=== PATIENT | female | born 1985 | race Caucasian/White ===

== ENCOUNTER → 2018-06-25 | Outpatient (CLI) | payer OTHER | LOC: FIMAGING 11:09 | PROVIDERS: ATTEND Obstetrics & Gynecology | DX: O92.29 Other disorders of breast associated with pregnancy and the puerperium (principal); Z3A.35 35 weeks gestation of pregnancy ==

== ENCOUNTER → 2018-06-30 | Outpatient (CLI) | payer OTHER ==
[~2018-06-30] MED LIST: BUPIVACAINE 0.25% 30 ML SDV ONE; LIDOCAINE 1% 300 MG/30 ML SDV ONE
== END ==
LOC: FIMAGING 07:23
PROVIDERS: ATTEND Obstetrics & Gynecology
PROC: 0HBU3ZX Excision of Left Breast, Percutaneous Approach, Diagnostic (ICD-10-PCS; principal; 2018-06-30)
DX: O92.29 Other disorders of breast associated with pregnancy and the puerperium (principal)

== ENCOUNTER 2018-08-01 09:20 | Inpatient (IN) | payer OTHER ==
[2018-08-01] MEDS ORDERED: IBUPROFEN 600 MG TAB PO PRN (09:58)
[2018-08-01] MEDS ORDERED: OXYTOCIN/RINGERS LACTATE 1,000 ML IV PRN (09:58)
[2018-08-01] MEDS ORDERED: EPSOM SALT 454 GM TP PRN (09:58)
[2018-08-01] MEDS ORDERED: MISOPROSTOL 200 MCG TAB PR PRN (09:58)
[2018-08-01] MEDS ORDERED: LIDOCAINE 1% 300 MG/30 ML SDV SC PRN (09:58)
[2018-08-01] MEDS ORDERED: OLIVE OIL 118 ML BTL MISC PRN (09:58)
[2018-08-01] MEDS ORDERED: AMMONIA AROMATIC 1 EACH AMP IH ONE (10:31)
[2018-08-01] MEDS ORDERED: OXYTOCIN 10 UNIT/ML VIAL ONE (10:31)
[2018-08-01] MEDS ORDERED: TERBUTALINE SULFATE 1 MG/ML VIAL ONE (10:32)
[2018-08-01] MEDS ORDERED: LR 500 ML IV PRN (11:35)
[2018-08-01 11:42] LABS: PLATELET COUNT 283 10^3/uL (150-400)
[2018-08-01] MEDS ORDERED: OXYTOCIN/RINGERS LACTATE 500 ML IV SCH (12:00)
[2018-08-01] MEDS: MISOPROSTOL 25 MCG CAP PO SCH ×2 (12:12→16:27)
--- NOTE | 2018-08-01 12:26 | GHP ---
[f rep st] HISTORY AND PHYSICAL DATE OF ADMISSION: 08/01/2018 ADMITTING DIAGNOSES: 1. Intrauterine at 41 weeks. 2. Premature rupture of membranes. HISTORY OF PRESENT ILLNESS: The patient is a 33-year-old, 1, para 0, at 41 weeks with estimated due date 07/25/2018, by last menstrual period 2017, and consistent with ultrasound at 8 weeks and 4 days. The patient presents to labor and delivery with complaints of leakage of fluid since 8 p.m. last night. The patient states clear fluid with no odor, and then at 4:00 this morning, she had another gush of fluid, as well as right before coming into the hospital which was pinkish color. The patient denies any contractions at this time. States there is good movement. No vaginal bleeding or spotting noted. The patient has good care at [facility], and presented in her first trimester at 8 weeks. Patient has a history of supraventricular tachycardia and discontinued diltiazem 6 months prior to conception. She has had no episodes of SVT throughout the . The patient has a history of anxiety, and [facility], currently unmedicated. The patient has a low-lying placenta diagnosed on 20 week ultrasound, which then resolved on ultrasound at 30 weeks. She had an abnormal 1-hour Glucola at 141, and a normal 3-hour Glucola. The patient developed anemia of and was taking iron, and then discontinued it since no further anemic. The patient received Tdap during . GBS culture is negative. PAST OBSTETRICAL HISTORY: This is the patient's first . PAST GYNECOLOGICAL HISTORY: Age of menarche was 11. Cycles are regular, every 28 days, for 2-3 days. LMP 10/26/2017. The patient denies a history of abnormal Pap smears or any exposure to sexually transmitted diseases. CURRENT MEDICATIONS: Include vitamins with DHA. ALLERGIES: No known drug allergies. PAST MEDICAL HISTORY: SVT diagnosed in 2012 and anxiety. PAST SURGICAL HISTORY: Left elbow. FAMILY HISTORY: Maternal grandfather, myocardial infarction; maternal grandmother and paternal grandmother, stroke; father, ALS; maternal uncle, Parkinson's; mother with uterine cancer, age 55, BRCA negative; maternal grandmother with breast cancer diagnosed in 50s, then metastasized, at age 61. SOCIAL HISTORY: The patient is and lives with her . 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 Denies any alcohol, tobacco or illicit drug use during the . REVIEW OF SYSTEMS: Ten-point review of systems is negative. Pertinent positives as noted in HPI. LABS: First trimester H and H, 14 and 40.2, platelets 275. Blood type A positive, antibody negative. RPR nonreactive. Rubella immune. Hepatitis B surface antigen negative. HIV negative. Standard panel negative . Parvovirus and varicella immune. Urine drug screen, UA, and culture all negative. Innatal screen negative. Third trimester H and H, 12 and 34.7. One-hour Glucola 141; 3-hour Glucola 76, 149, 120, 157. GBS culture is negative. Hematocrit at 34 weeks was 38. PHYSICAL EXAMINATION: VITAL SIGNS: On admission, vital signs are stable. The patient is afebrile. GENERAL: Well-nourished, well-developed female. Alert and oriented x3. No apparent distress. SKIN: Warm, dry without rash. NEURO: Grossly intact. CARDIOVASCULAR: Regular rate and rhythm. LUNGS: Clear to auscultation bilaterally. ABDOMEN: Gravid, soft, nontender. PELVIC: On exam , patient was 1-2 cm dilated, 65% effaced, and -3 station. AmniSure was positive. EXTREMITIES: Normal to inspection without calf tenderness or edema. heart tones are Category 1 tracing with baseline 140 beats per minute. Positive accelerations. No decelerations. Moderate variability. On toco, there is uterine irritability and occasional contractions. ASSESSMENT/PLAN: The patient is a 33-year-old, 1, para 0, at 41 weeks gestation who presents with premature rupture of membranes. 1. Admit to labor and delivery for induction of labor. 2. With unfavorable cervix, will start cervical ripening with Misoprostol 25 mg buccally every 4 hours. 3. GBS culture is negative, no prophylactic antibiotics are needed. 4. The patient desires epidural for pain control. 5. The patient is afebrile upon admission; will continue to monitor at this time since ruptured greater than almost 16 hours now. /[id number]/MODL MTDD
--- NOTE | 2018-08-01 16:05 | OBPROG ---
Labor Progress Note Assessment/Plan: Assessment: 33 y/o @ 41 weeks with PROM Plan: s/p first dose of buccal miso, up ambulating, due for second dose now Bedside u/s confirms cephalic presentation FHTs - Cat I tracing, will cont to monitor Pt remains afebrile 08/01/18 16:01 Subjective/Intrapartum Course: 08/01/18 16:02 Pt back from ambulating and c/o cramping. Objective: 08/01/18 11:30 Patient ABO/Rh A POSITIVE 08/01/18 11:30 - Contraction Pattern Assessment Current Contraction Pattern: Irregular - FHR Assessment Colbert FHR (bpm): 140 FHR Pattern Variability: Moderate FHR Category: 1 - AP Antepartum Course: 08/01/18 16:03 Low-lying placenta that resolved on 30-wk u/s; no episodes of SVT during ; Abn 1-hr Glucola, but normal 3-hr Glucola; breast bx at 35 weeks was done and benign Oxytocin Orders Assessment - Pre-Induction/Augmentation Assessment Gestational Age: 41 week(s) and 0 day(s) ICD10 Worksheet Patient Problems: Problems Problem Status Onset PROM (premature rupture of membranes) Acute Post-dates Acute - ICD10 Problem Qualifiers (1) PROM (premature rupture of membranes) Qualifiers: PROM gestational age: full term (2) Post-dates
[2018-08-01] MEDS: LR 1,000 ML IV PRN (22:03)
[2018-08-02] MEDS ORDERED: FAMOTIDINE 20 MG/NACL 50 ML IV PRN (00:02)
[2018-08-02] MEDS ORDERED: ONDANSETRON 4 MG/2 ML VIAL IVP PRN (00:02)
[2018-08-02] MEDS ORDERED: PHENYLEPHRINE HCL 100 MCG/ML SYR IVP PRN (00:17)
[2018-08-02] MEDS ORDERED: NALOXONE HCL 0.4 MG/ML INJ IVP PRN (00:17)
[2018-08-02] MEDS ORDERED: BUPIVACAINE 0.25% 10 ML SDV ONE (00:22)
[2018-08-02] MEDS ORDERED: fentaNYL 100 MCG/2 ML INJ ONE (00:22)
[2018-08-02] MEDS ORDERED: fentaNYL 2MCG/ML/BUP 0.1% RTU 100 ML BAG EP ONE (00:22)
[2018-08-02] MEDS ORDERED: PHENYLEPHRINE HCL 100 MCG/ML SYR ONE (00:23)
--- NOTE | 2018-08-02 00:26 | PREANESOB ---
Obstetric Pre-Anesthesia Info - General Info Proposed Procedure: labor epidural NPO Start Time: 00:00 : 1 Para: 0 DENIA: 07/25/18 Gestational Age: 41 week(s) and 0 day(s) - Info Status: Full Term Monitors: External FHR Pattern: Reassuring - Labor Status Cervical Dilation per last OB SVE: 1 Rupture of Membranes Date: 08/01/18 Rupture of Membranes Time: 20:00 Amniotic Fluid Color: Clear PIH: No Magnesium Sulfate in Use: No Indications for Labor Analgesia: Pain Control Labor Epidural: Proposed Anesthesia Allergies/Adverse Reactions: Allergy/AdvReac Type Severity Reaction Status Date / Time No Known Allergies Allergy Unverified 09/02/15 22:54 Home Medications: Medication Instructions Recorded Vit27&Calcium/Iron/FA 1 each PO DAILY 08/01/18 [ Rx 1 Tablet (RX)] Visit Medications: Generic Name Dose Route Start Last Admin Trade Name Freq PRN Reason Stop Dose Admin Lactated Ringer's 1,000 mls @ 0 mls/hr 08/01/18 09:58 08/01/18 22:03 Lr IV 08/02/18 09:57 1,000 mls PRN PRN Administration SEE PROTOCOL CONDITIONS Protocol Per Protocol Oxytocin/Lactated Ringer's 1,000 mls @ 125 mls/hr 08/01/18 09:58 Pitocin 20 Units/Lr (Premix) IV PRN PRN Post bleeding Lactated Ringer's 500 mls @ 500 mls/hr 08/01/18 11:35 Lr IV 08/02/18 11:35 PRN PRN Maternal Hypotension Oxytocin/Lactated Ringer's 500 mls @ 0 mls/hr 08/01/18 12:00 08/01/18 22:03 Pitocin 30 Units/Lr (Premix) IV 01/28/19 11:59 500 mls CONT OBED Administration Protocol Per Protocol Famotidine/Sodium Chloride 50 mls @ 200 mls/hr 08/02/18 00:02 Pepcid 20 Mg (Premix) IV 01/29/19 00:01 Q12 PRN ACID REFLUX Ibuprofen 600 mg 08/01/18 09:58 Motrin PO ONCE PRN post , pain Lidocaine HCl 300 mg 08/01/18 09:58 Lidocaine Hcl 1% SC 01/28/19 09:57 ONCE PRN episiotomy Magnesium Sulfate 454 gm 08/01/18 09:58 Epsom Salt TP 01/28/19 09:57 Q1H PRN perineal discomfort Misoprostol 800 - 1,000 mcg 08/01/18 09:58 Cytotec NE ONCE PRN Vaginal Atony/Bleeding Misoprostol 25 mcg 08/01/18 12:00 08/01/18 16:27 Cytotec PO 01/28/19 11:59 25 mcg Q4H OBED Administration Aurora Oil 118 ml 08/01/18 09:58 Sweet Oil MISC 01/28/19 09:57 ONCE PRN perineal massage Ondansetron HCl 4 mg 08/02/18 00:02 Zofran IVP 01/29/19 00:01 Q6 PRN Nausea/Vomiting, Can't Take PO Discontinued Medications Generic Name Dose Route Start Last Admin Trade Name Freq PRN Reason Stop Dose Admin Ammonia (Aromatic Spirit) Confirm 08/01/18 10:31 Ammonia Aromatic Administered 08/01/18 10:32 Dose 1 each IH .STK-MED ONE Oxytocin Confirm 08/01/18 10:31 Pitocin Administered 08/01/18 10:32 Dose 30 unit .ROUTE .STK-MED ONE Terbutaline Sulfate Confirm 08/01/18 10:32 Brethine Administered 08/01/18 10:33 Dose 1 mg .ROUTE .STK-MED ONE - Anesthesia History Response to Local Anesthetics: Normal Anesthesia & Operative History: No Prior Problems Family Anesthesia History: Negative - Social History Substance Use/Abuse: Denies, ETOH (occassional pre gestation), Tobacco (never smoked) - Vital Signs Height/Weight (Nursing): Height 167.64 cm Weight 83.007 kg - Focused Exam Neck exam: FROM Mallampati Score: Class 3 Mouth exam: small mouth opening Pulmonary: no respiratory distress Cardiovascular: regular rate and rhythym Labs: 08/01/18 11:30 Patient ABO/Rh A POSITIVE 08/01/18 11:30 - Plan Anesthetic Plan: Labor Epidural analgesia Consent Signed and on Chart: Yes Patient/Guardian Understands and Agrees to Plan: Yes
[2018-08-02] MEDS ORDERED: fentaNYL 2MCG/ML/BUP 0.1% RTU 100 ML EP SCH (00:30)
[2018-08-02] MEDS ORDERED: LR 500 ML IV SCH (00:30)
--- NOTE | 2018-08-02 01:14 | POSTANESTH ---
Post Anesthetic Evaluation Cardiovascular Status: Normal, Stable Respiratory Status: Normal, Stable Level of Consciousness/Mental Status: Can Participate in Eval Pain Control: Adequate, Prn Tx Ordered Nausea/Vomiting Control: Adequate, Prn Tx Ordered Complications Possibly Related to Anesthesia: None Noted (Pain with contractions is 0/10, was 7/10 before DARRIUS placement. Decreased sensation to LT to T10 B, able to move B LE.)
[2018-08-02] MEDS: LR 1,000 ML IV PRN (01:45)
--- NOTE | 2018-08-02 04:15 | OBPROG ---
Labor Progress Note Assessment/Plan: Assessment: 33 y/o @ 41 weeks with PROM Plan: Continue current management s/p Cytotec buccal x 2 - last dose at 1600 3/3 Pitocin currently at 2 mu/min; some times of tachysystole noted SVE: complete/-1 FHTs - Cat I tracing, reassuring Pt remains afebrile with Temp 37.0 at 0315 Will have pt labor down Anticipate 08/02/18 04:11 Subjective/Intrapartum Course: 08/01/18 16:02 Pt back from ambulating and c/o cramping 08/02/18 04:15 Pt is s/p epidural, placed at 0045-she is comfortable with no complaints at this time. Nausea and acid reflux improved. Objective: 08/01/18 11:30 Patient ABO/Rh A POSITIVE 08/01/18 11:30 - SVE Dilation (cm): 10 Effacement (%): 100 Station: -1 Membranes: SROM (PROM) Amniotic Fluid Color: Clear Dilation Complete Date: 08/02/18 Dilation Complete Time: 03:15 - Contraction Pattern Assessment Current Contraction Pattern: Regular (q 2-4 min with coupling) - FHR Assessment Colbert FHR (bpm): 130 FHR Pattern Variability: Moderate FHR Category: 2 (intermittent mild variable decels noted) - AP Antepartum Course: 08/01/18 16:03 Low-lying placenta that resolved on 30-wk u/s; no episodes of SVT during ; Abnormal 1-hr Glucola, but normal 3-hr Glucola; breast bx at 35 weeks was done and benign Oxytocin Orders Assessment - Pre-Induction/Augmentation Assessment Gestational Age: 41 week(s) and 0 day(s) ICD10 Worksheet Patient Problems: Problems Problem Status Onset PROM (premature rupture of membranes) Acute Post-dates Acute - ICD10 Problem Qualifiers (1) PROM (premature rupture of membranes) Qualifiers: PROM onset of labor timing: onset of labor more than 24 hours following rupture PROM gestational age: full term Qualified Code(s): O42.12 - Full- term premature rupture of membranes, onset of labor more than 24 hours following rupture (2) Post-dates
[2018-08-02] MEDS: MISOPROSTOL 25 MCG CAP PO SCH ×2 (07:17→07:18)
--- NOTE | 2018-08-02 07:19 | OBPROG ---
Labor Progress Note Assessment/Plan: Assessment: 33 y/o @ 41 1/7 weeks with PROM now almost 36 hours Plan: Started pushing with pt for about 30 min Suspect OP; will have pt positioned on her side with peanut ball and then start pushing again FHTs - Cat II strip with intermittent variable decels Pt remains afebrile Anticipate 08/02/18 07:21 Subjective/Intrapartum Course: 08/01/18 16:02 Pt back from ambulating and c/o cramping 08/02/18 04:15 Pt is s/p epidural, placed at 0045-she is comfortable with no complaints at this time. Nausea and acid reflux improved. 08/02/18 07:19 Pt pushing well; she needs a lot of reinforcement. She is happy to have Dr. Montesinos come on. Objective: 08/01/18 11:30 Patient ABO/Rh A POSITIVE 08/01/18 11:30 - SVE Dilation (cm): 10 Effacement (%): 100 Station: +1 Membranes: SROM (PROM) Amniotic Fluid Color: Clear Dilation Complete Date: 08/02/18 Dilation Complete Time: 03:15 - Contraction Pattern Assessment Current Contraction Pattern: Irregular (q 3-5 min with coupling) - FHR Assessment Colbert FHR (bpm): 130 FHR Pattern Variability: Moderate FHR Category: 2 (intermittent variable decels) - AP Antepartum Course: 08/01/18 16:03 Low-lying placenta that resolved on 30-wk u/s; no episodes of SVT during ; Abnormal 1-hr Glucola, but normal 3-hr Glucola; breast bx at 35 weeks was done and benign Oxytocin Orders Assessment - Pre-Induction/Augmentation Assessment Gestational Age: 41 week(s) and 0 day(s) ICD10 Worksheet Patient Problems: Problems Problem Status Onset PROM (premature rupture of membranes) Acute Post-dates Acute - ICD10 Problem Qualifiers (1) PROM (premature rupture of membranes) Qualifiers: PROM onset of labor timing: onset of labor more than 24 hours following rupture PROM gestational age: full term Qualified Code(s): O42.12 - Full- term premature rupture of membranes, onset of labor more than 24 hours following rupture (2) Post-dates
--- NOTE | 2018-08-02 08:28 | OBPROG ---
Labor Progress Note Assessment/Plan: Assessment: Plan: Subjective/Intrapartum Course: 08/01/18 16:02 Pt back from ambulating and c/o cramping 08/02/18 04:15 Pt is s/p epidural, placed at 0045-she is comfortable with no complaints at this time. Nausea and acid reflux improved. 08/02/18 07:19 Pt pushing well; she needs a lot of reinforcement. She is happy to have Dr. Montesinos come on. 08/02/18 08:27 complete and pushing. good maternal effort. baby feels to be in LOP position. trying multiple positions. status reassuring. pitocin is at 3 mu. having some coupling. will increase pitocin as needed. 08/02/18 08:27 Objective: 08/01/18 11:30 Patient ABO/Rh A POSITIVE 08/01/18 11:30 - SVE Dilation (cm): 10 Station: +1 Membranes: SROM (PROM) Amniotic Fluid Color: Clear Dilation Complete Date: 08/02/18 Dilation Complete Time: 03:15 - Contraction Pattern Assessment Current Contraction Pattern: Irregular (q 3-5 min with coupling) - FHR Assessment Colbert FHR Category: 1 - AP Antepartum Course: 08/01/18 16:03 Low-lying placenta that resolved on 30-wk u/s; no episodes of SVT during ; Abnormal 1-hr Glucola, but normal 3-hr Glucola; breast bx at 35 weeks was done and benign Oxytocin Orders Assessment - Pre-Induction/Augmentation Assessment Gestational Age: 41 week(s) and 0 day(s) ICD10 Worksheet Patient Problems: Problems Problem Status Onset PROM (premature rupture of membranes) Acute Post-dates Acute
--- NOTE | 2018-08-02 10:47 | OBPROG ---
Labor Progress Note Assessment/Plan: Assessment: Plan: Subjective/Intrapartum Course: 08/01/18 16:02 Pt back from ambulating and c/o cramping 08/02/18 04:15 Pt is s/p epidural, placed at 0045-she is comfortable with no complaints at this time. Nausea and acid reflux improved. 08/02/18 07:19 Pt pushing well; she needs a lot of reinforcement. She is happy to have Dr. Montesinos come on. 08/02/18 08:27 complete and pushing. good maternal effort. baby feels to be in LOP position. trying multiple positions. status reassuring. pitocin is at 3 mu. having some coupling. will increase pitocin as needed. 08/02/18 08:27 08/02/18 10:44 patient pushed epidural bolus button. discussed not pushing it further so she can have increased sensation with pushing. iupc placed without difficulty. contractions are inadequate. .will continue to increase pitocin. status reassuring. will continue repositioning and will try spinning babies positioning to try to facilitate better baby positioning. Objective: 08/01/18 11:30 Patient ABO/Rh A POSITIVE 08/01/18 11:30 - SVE Membranes: SROM (PROM) Amniotic Fluid Color: Clear Dilation Complete Date: 08/02/18 Dilation Complete Time: 03:15 - Contraction Pattern Assessment Current Contraction Pattern: Irregular (q 3-5 min with coupling) - Procedures Non-surgical Procedures: IUPC - AP Antepartum Course: 08/01/18 16:03 Low-lying placenta that resolved on 30-wk u/s; no episodes of SVT during ; Abnormal 1-hr Glucola, but normal 3-hr Glucola; breast bx at 35 weeks was done and benign Oxytocin Orders Assessment - Pre-Induction/Augmentation Assessment Gestational Age: 41 week(s) and 0 day(s) ICD10 Worksheet Patient Problems: Problems Problem Status Onset PROM (premature rupture of membranes) Acute Post-dates Acute
--- NOTE | 2018-08-02 12:24 | OBPROG ---
Labor Progress Note Assessment/Plan: Assessment: Plan: Subjective/Intrapartum Course: 08/01/18 16:02 Pt back from ambulating and c/o cramping 08/02/18 04:15 Pt is s/p epidural, placed at 0045-she is comfortable with no complaints at this time. Nausea and acid reflux improved. 08/02/18 07:19 Pt pushing well; she needs a lot of reinforcement. She is happy to have Dr. Montesinos come on. 08/02/18 08:27 complete and pushing. good maternal effort. baby feels to be in LOP position. trying multiple positions. status reassuring. pitocin is at 3 mu. having some coupling. will increase pitocin as needed. 08/02/18 08:27 08/02/18 10:44 patient pushed epidural bolus button. discussed not pushing it further so she can have increased sensation with pushing. iupc placed without difficulty. contractions are inadequate. .will continue to increase pitocin. status reassuring. will continue repositioning and will try spinning babies positioning to try to facilitate better baby positioning. 08/02/18 12:22 contractions adequate. patient has been in multiple positions. overall status is reassuring. started pushing. will continue close observation. Objective: 08/01/18 11:30 Patient ABO/Rh A POSITIVE 08/01/18 11:30 - SVE Dilation (cm): 10 Effacement (%): 100 Station: +2 Membranes: SROM (PROM) Amniotic Fluid Color: Clear Dilation Complete Date: 08/02/18 Dilation Complete Time: 03:15 - Contraction Pattern Assessment Current Contraction Pattern: Irregular (q 3-5 min with coupling) - FHR Assessment Colbert FHR Category: 2 - Procedures Non-surgical Procedures: IUPC - AP Antepartum Course: 08/01/18 16:03 Low-lying placenta that resolved on 30-wk u/s; no episodes of SVT during ; Abnormal 1-hr Glucola, but normal 3-hr Glucola; breast bx at 35 weeks was done and benign Oxytocin Orders Assessment - Pre-Induction/Augmentation Assessment Gestational Age: 41 week(s) and 0 day(s) ICD10 Worksheet Patient Problems: Problems Problem Status Onset PROM (premature rupture of membranes) Acute Post-dates Acute
[2018-08-02] MEDS ORDERED: ACETAMINOPHEN 325 MG TAB ONE (14:34)
[2018-08-02] MEDS: ACETAMINOPHEN 325 MG TAB PO PRN ×2 (14:57→21:19)
--- NOTE | 2018-08-02 14:57 | OBDEL ---
Info Type: Vaginal Presentation at Delivery: Vertex L&D Analgesia/Anesthesia Type: Epidural GBS+: No Intrapartum Medications: Generic Name Dose Route Start Last Admin Trade Name Freq PRN Reason Stop Dose Admin Oxytocin/Lactated Ringer's 500 mls @ 0 mls/hr 08/01/18 12:00 08/01/18 22:03 Pitocin 30 Units/Lr (Premix) IV 01/28/19 11:59 500 mls CONT OBED Administration Protocol Per Protocol Famotidine/Sodium Chloride 50 mls @ 200 mls/hr 08/02/18 00:02 08/02/18 01:44 Pepcid 20 Mg (Premix) IV 01/29/19 00:01 50 mls Q12 PRN Administration ACID REFLUX Misoprostol 25 mcg 08/01/18 12:00 08/02/18 07:18 Cytotec PO 01/28/19 11:59 Not Given Q4H OBED Ondansetron HCl 4 mg 08/02/18 00:02 08/02/18 04:26 Zofran IVP 01/29/19 00:01 4 mg Q6 PRN Administration Nausea/Vomiting, Can't Take PO Discontinued Medications Generic Name Dose Route Start Last Admin Trade Name Freq PRN Reason Stop Dose Admin Lactated Ringer's 1,000 mls @ 0 mls/hr 08/01/18 09:58 08/02/18 01:45 Lr IV 08/02/18 09:57 1,000 mls PRN PRN Administration SEE PROTOCOL CONDITIONS Protocol Per Protocol - Hospital Course Intrapartum: 08/01/18 16:02 Pt back from ambulating and c/o cramping 08/02/18 04:15 Pt is s/p epidural, placed at 0045-she is comfortable with no complaints at this time. Nausea and acid reflux improved. 08/02/18 07:19 Pt pushing well; she needs a lot of reinforcement. She is happy to have Dr. Montesinos come on. 08/02/18 08:27 complete and pushing. good maternal effort. baby feels to be in LOP position. trying multiple positions. status reassuring. pitocin is at 3 mu. having some coupling. will increase pitocin as needed. 08/02/18 08:27 08/02/18 10:44 patient pushed epidural bolus button. discussed not pushing it further so she can have increased sensation with pushing. iupc placed without difficulty. contractions are inadequate. .will continue to increase pitocin. status reassuring. will continue repositioning and will try spinning babies positioning to try to facilitate better baby positioning. 08/02/18 12:22 contractions adequate. patient has been in multiple positions. overall status is reassuring. started pushing. will continue close observation. Indications for Delivery: Spontaneous Labor, SROM Vaginal Delivery - Delivery Provider Delivery Physician/CNM: Katie Montesinos - Labor and Delivery Onset of Contractions Date: 08/01/18 Onset of Contractions Time: 20:57 Onset of Contractions Type: Augmented Rupture of Membranes Date: 08/01/18 Rupture of Membranes Time: 20:00 Rupture of Membranes Type: Spontaneous Amniotic Fluid Color: Clear Dilation Complete Date: 08/02/18 Dilation Complete Time: 03:15 Placenta Delivery Date: 08/02/18 Placenta Delivery Time: 14:19 Total Hours of Labor: 17 Non-surgical Procedures: IUPC Laceration: 2nd Degree, Other (Specify) (right vaginal sulcus) Repair: 3-0 Vaginal Sponge Count Correct: Yes Vaginal Needle Count Correct: Yes Vaginal Sweep Performed: Yes EBL: 300 Delivery Comment: patient complete around 3 am. labored down. tried pushing but wasnt moving the baby well. IUPC placed. pitocin increased. multiple position changes and spinning babies maneuvers. patient pushed well after resumed pushing. - Medications Labor Augmentation/Induction Methods Used: Pitocin Labor Augmentation/Induction Indication: Inadequate Contraction Frequency, Inadequate Contraction Strength Data DENIA: 07/25/18 Gestational Age: 41 week(s) and 1 day(s) Colbert Delivery Date: 08/02/18 Delivery Time: 14:15 Sex of Infant: Female Score (1 Min): 8 Score (5 Min): 9 ICD10 Worksheet Patient Problems: Problems Problem Status Onset PROM (premature rupture of membranes) Acute Post-dates Acute Spontaneous vaginal delivery Acute - ICD10 Problem Qualifiers (1) Spontaneous vaginal delivery
[2018-08-02] MEDS ORDERED: HYDROCORTISONE 0.5% CREAM TP PRN (15:04)
[2018-08-02] MEDS ORDERED: oxyCODONE IR 5 MG TAB PO PRN (15:04)
[2018-08-02] MEDS: IBUPROFEN 600 MG TAB PO PRN (21:19)
[2018-08-02] MEDS: DOCUSATE SODIUM 100 MG CAP PO PRN (21:20)
[2018-08-03] MEDS: ACETAMINOPHEN 325 MG TAB PO PRN ×4 (03:11→21:39)
[2018-08-03] MEDS: IBUPROFEN 600 MG TAB PO PRN ×4 (03:11→21:39)
[2018-08-03] MEDS: DOCUSATE SODIUM 100 MG CAP PO PRN ×2 (09:19→21:39)
[2018-08-03 09:47] LABS: PLATELET COUNT 218 10^3/uL (150-400)
--- NOTE | 2018-08-03 09:52 | OBPP ---
Progress Note Assessment/Plan: Assessment: PPD 1 s/p fever yesterday, none today - feels fine - CBC pending hx SVT/anxiety Plan: Routine care 08/03/18 09:47 Subjective/ Course: 08/03/18 09:50 Doing well, got some sleep. Working on BF and having pretty good latch. Bld is light. urinating fine. Bottom not too sore - using ibu/tyl. Objective: Patient ABO/Rh A POSITIVE 08/01/18 11:30 Temp Pulse Resp BP Pulse Ox 36.3 C 73 18 104/63 97 08/03/18 08:00 08/03/18 08:00 08/03/18 08:00 08/03/18 08:00 08/03/18 08:00 Uterine Position/Fundal Height: Umbilicus -1 Uterine Tone: Firm Physical Exam - Physical Exam Abdomen: non-tender, soft, other (FF at umb -1) Extremities: non-tender, pedal edema (minimal) Skin: normal color, warm/dry Neuro/Psych: alert, normal mood/affect
[2018-08-03] MEDS ORDERED: EPSOM SALT 454 GM TP ONE (15:00)
[2018-08-03] MEDS: MISOPROSTOL 25 MCG CAP PO SCH (16:27)
--- NOTE | 2018-08-03 20:19 | POSTANESTH ---
Post Anesthetic Evaluation Cardiovascular Status: Normal, Stable, Similar to Pre-Op Cond Respiratory Status: Normal, Stable, Similar to Pre-op Cond. Level of Consciousness/Mental Status: Can Participate in Eval, Alert and Oriented Pain Control: Adequate, Prn Tx Ordered Nausea/Vomiting Control: Adequate, Prn Tx Ordered Complications Possibly Related to Anesthesia: None Noted Notes: Pt seen and examined. block resolved, no apparent ill effects. Back site c/d/i , no e/e/e. Able to ambulate. Denies n/v/PIERCE.
[2018-08-04] MEDS: ACETAMINOPHEN 325 MG TAB PO PRN ×2 (03:27→09:48)
[2018-08-04] MEDS: IBUPROFEN 600 MG TAB PO PRN ×2 (03:27→09:48)
[2018-08-04 08:12] VITALS: BP 113/69
[2018-08-04] MEDS: DOCUSATE SODIUM 100 MG CAP PO PRN (08:13)
[2018-08-04] MEDS ORDERED: FERRO-SEQUELS 65 MG TAB.ER PO SCH (09:00)
--- NOTE | 2018-08-04 14:10 | OBPP ---
Progress Note Assessment/Plan: Assessment: 33 G1now P1 PPD#2 s/p , doing well, ready for homegoing Plan: DC home, Std vag deliv dc instructions reviewed, including ssx of pp depression. See dc summary. Silvia Zaragoza MD, [facility]ACOG [facility] 08/04/18 14:20 Subjective/ Course: 08/03/18 09:50 Doing well, got some sleep. Working on BF and having pretty good latch. Bld is light. urinating fine. Bottom not too sore - using ibu/tyl. 08/04/18 14:22 Pt doing well, ambulating, voiding, judy reg diet without difficulty. No BM yet. Mod lochia. Min discomfort of perineum. Objective: 08/03/18 09:25 Patient ABO/Rh A POSITIVE 08/01/18 11:30 Temp Pulse Resp BP Pulse Ox 36.5 C 75 16 113/69 95 08/04/18 08:11 08/04/18 08:11 08/04/18 08:11 08/04/18 08:11 08/04/18 08:11 gen - pleasant, NAD CV - RRR chest - CTAB abd - soft, fundus firm at u-2, + BS, NT ext - no calf tenderness, trace edema perineum - not examined, as ESTELITA Colmenares, just did an exam and pt Uterine Position/Fundal Height: Umbilicus -2 Uterine Tone: Firm
--- NOTE | 2018-08-04 14:11 | OBGCSDC ---
General Delivery Information - General Info : 1 Para: 1 Abortions: 0 Type: Vaginal L&D Analgesia/Anesthesia Type: Epidural Admission Date: 08/01/18 Labs: Patient ABO/Rh A POSITIVE 08/01/18 11:30 Hct 34.3 % (38.0-47.0) L 08/03/18 09:25 - Hospital Course Antepartum: 08/01/18 16:03 Low-lying placenta that resolved on 30-wk u/s; no episodes of SVT during ; Abnormal 1-hr Glucola, but normal 3-hr Glucola; breast bx at 35 weeks was done and benign Intrapartum: 08/01/18 16:02 Pt back from ambulating and c/o cramping 08/02/18 04:15 Pt is s/p epidural, placed at 0045-she is comfortable with no complaints at this time. Nausea and acid reflux improved. 08/02/18 07:19 Pt pushing well; she needs a lot of reinforcement. She is happy to have Dr. Montesinos come on. 08/02/18 08:27 complete and pushing. good maternal effort. baby feels to be in LOP position. trying multiple positions. status reassuring. pitocin is at 3 mu. having some coupling. will increase pitocin as needed. 08/02/18 08:27 08/02/18 10:44 patient pushed epidural bolus button. discussed not pushing it further so she can have increased sensation with pushing. iupc placed without difficulty. contractions are inadequate. .will continue to increase pitocin. status reassuring. will continue repositioning and will try spinning babies positioning to try to facilitate better baby positioning. 08/02/18 12:22 contractions adequate. patient has been in multiple positions. overall status is reassuring. started pushing. will continue close observation. : 08/03/18 09:50 Doing well, got some sleep. Working on BF and having pretty good latch. Bld is light. urinating fine. Bottom not too sore - using ibu/tyl. Vaginal - Delivery Provider Delivery Physician/CNM: Katie Montesinos - Diagnosis Labor: Augmented Rupture of Membranes Type: Spontaneous Amniotic Fluid Color: Clear Laceration: 2nd Degree, Other (Specify) (right vaginal sulcus) Repair: 3-0 - Procedures Non-surgical Procedures: IUPC - Delivery Non-surgical Procedures: IUPC EBL: 300 [place] Data DENIA: 07/25/18 Gestational Age: 41 week(s) and 3 day(s) [place] Delivery Date: 08/02/18 Delivery Time: 14:15 Sex of : Female Weight (gm): 4010 g Score (1 Min): 8 Score (5 Min): 9 Discharge Information - Discharge Information Condition: Good Instruction/Follow Up: Two Weeks (at [facility] with the [facility]), Six Weeks (for a full physical exam with a physician at [facility])
== END 2018-08-04 15:23 | disposition home or self-care (01) | DRG 807 ==
LOC: FLD 09:20 → FOB 08-02 17:05
PROVIDERS: ADMIT Obstetrics & Gynecology; ATTEND Obstetrics & Gynecology
DX: O42.12 Full-term premature rupture of membranes, onset of labor more than 24 hours following rupture (principal); Z37.0 Single live birth; Z3A.41 41 weeks gestation of pregnancy; O70.1 Second degree perineal laceration during delivery; O62.0 Primary inadequate contractions
CPT/HCPCS: J2370; J2405; J2590; J3010; J3105